=== PATIENT | male | born 1940 | race Caucasian/White ===

== ENCOUNTER 2017-05-27 20:47 | Observation (INO) ==
--- NOTE | 2017-05-27 20:58 | Emergency Department Note ---
Disposition Clinical Impression: Hypotension Qualifiers: Hypotension type: unspecified hypotension type Qualified Code(s): I95.9 - Hypotension, unspecified Medication adverse effect Qualifiers: Encounter type: initial encounter Qualified Code(s): T88.7XXA - Unspecified adverse effect of drug or medicament, initial encounter Disposition: Admitted As Inpatient Condition: Good Referrals: Oscar Khalil [Primary Care Provider] - Forms: ED Satisfaction Letter, Work/School Release Time of Disposition: 23:35 General Adult HPI - General Chief complaint: ED General Medical Stated complaint: low blood pressure Time Seen by Provider: 05/27/17 20:57 Source: patient Mode of arrival: ambulatory Limitations: no limitations Nursing Notes Reviewed: Yes Vital Signs Reviewed: Yes - History of Present Illness HPI Narrative: Patient is a 76-year-old male with past history of hypertension, hyperlipidemia , CAD, A. fib, previous CVA. He presents today due to concern for low blood pressure. He says that he was just started back on Cozaar 2 days ago. He he was taken off this medication in the past due to low blood pressure while on the medication. He says that today, he was walking at home and began to feel lightheaded, had blurred vision, felt generally fatigued. He took his blood pressure and it was systolic 60s. EMS was called, they state that blood pressure was 70 on arrival. He was immediately started on 1 L normal saline bolus. By the time he arrived to the ER, blood pressure was systolic of 114. The patient denies any other chest pain, shortness breath, nausea, vomiting, fevers, diarrhea, abdominal pain, dysuria, hematuria. He says that he currently feels generally fatigued. He also notes that he has chronic weakness in his left upper and left lower extremity from previous CVA and is adamant that this is not new, his is present and she confirms this. Pain Scale: 0 - Related Data Previous Rx's Medication Instructions Recorded cephALEXin [Keflex] 500 mg PO QID #40 capsule 02/13/17 Allergies Allergy/AdvReac Type Severity Reaction Status Date / Time No Known Allergies Allergy Verified 02/13/17 18:43 All systems ED: reviewed and negative except as stated. Constitutional: Denies: fever Cardiovascular: Denies: chest pain, palpitations Respiratory: Denies: cough, dyspnea Gastrointestinal: Denies: abdominal pain, nausea, vomiting, diarrhea Genitourinary: Denies: urgency, dysuria, frequency Integumentary: Denies: rash Neurological: Reports: weakness (Generalized). Denies: headache, numbness, paresthesias Endocrine: Reports: fatigue Past Medical History - Past Medical History Attestation: Yes The following information was validated with the patient. Source: patient Medical history: Reports: atrial fibrillation, coronary artery disease, GERD, hyperlipidemia, hypertension, myocardial infarction Psychiatric history: Reports: no psych history - Social History Smoking Status: Never smoker Smokeless Tobacco Status: No Alcohol use: Reports: none Drug use: Reports: none Physical Exam - General Limitations: no limitations General appearance: alert, in no apparent distress - Head Head exam: atraumatic, normocephalic, normal inspection - Eye Eye exam: Present: normal appearance, PERRL, EOMI - ENT ENT exam: normal exam, normal oropharynx, mucous membranes moist - Neck Neck exam: Present: normal inspection, full ROM, trachea midline - Chest Chest inspection: Present: normal inspection, symmetric chest wall rise - Respiratory Respiratory exam: Present: normal lung sounds bilaterally - Cardiovascular Cardiovascular exam: Present: regular rate, normal rhythm, normal heart sounds - Abdominal Exam Abdominal exam: Present: soft, Non-Tender. Absent: tenderness, distention, guarding, rebound, rigidity - Extremities Exam Extremities exam: Present: normal inspection, full ROM. Absent: tenderness, pedal edema - Neurological Exam Neurological exam: Present: alert, oriented X3, other (Generalized weakness of all extremities, worse in the left upper and left lower extremity which the patient states is chronic.) - Psychiatric Psychiatric exam: Present: normal affect, normal mood - Skin Skin exam: Present: warm, dry, intact, normal color Course Course Narrative: Currently concern for hypotension secondary to new medication started 2 days ago. Due to generalized fatigue and complaints of blurred vision earlier, will also obtain head CT scan, basic blood work, chest x-ray, EKG, troponin. We will give the patient another 1 L bolus. Patient will likely need to be admitted overnight for observation and continuing blood pressure monitoring. 23:19 workup shows no major lab abnormality. Troponin negative. EKG shows sinus bradycardia with no acute ST changes. We will recommend repeating chest x -ray with hospitalist due to low lung volumes. There was concern for rounded opacity in the right inferior medial lung base, however, patient has no productive cough, no fevers, no elevated white blood cell count. I do not feel that this is pneumonia at this time. Recommend repeat imaging once admitted. Head CT was negative for any acute intracranial abnormality. I believe the patient's blurred vision, lightheadedness, generalized fatigue was due to his hypotension secondary to new antihypertensive medication started within the past few days. His blood pressure has now stabilized in the 120s after 2 L normal saline bolus. We will start the patient on maintenance IV fluid at 125 mL per hour. We will admit to the hospitalist for observation overnight due to hypotension Chest X-Ray 05/27/17 21:21 IMPRESSION: Rounded opacity in the right inferior medial lung base. This is indeterminate given the low volumes and may represent a confluence of hilar shadows, however focal airspace disease in this location would be difficult to exclude completely. Upright two view chest would be more helpful in this regard. D/ / Uli Vargas / Uli Vargas Interpreting Provider: Uli Vargas Head CT 05/27/17 21:53 IMPRESSION: Chronic ischemic changes as above. No acute intracranial abnormality. D/ / Uli Hutchinson MD / Uli Hutchinson MD Interpreting Provider: Uli Hutchinson MD Vital Signs Temperature 98 F 05/27/17 20:52 Pulse Rate 50 05/27/17 20:52 Respiratory Rate 18 05/27/17 20:52 Blood Pressure 114/70 05/27/17 20:52 O2 Sat by Pulse Oximetry 98 05/27/17 20:52 Temperature 98 F 05/27/17 20:52 Pulse Rate 52 05/27/17 22:30 Respiratory Rate 18 05/27/17 22:30 Blood Pressure 136/74 05/27/17 22:30 O2 Sat by Pulse Oximetry 96 05/27/17 22:30 Oxygen Delivery Oxygen Delivery Room Air Medical Decision Making - MDM Narrative Medical decision making narrative: Currently concern for hypotension secondary to new medication started 2 days ago. Due to generalized fatigue and complaints of blurred vision earlier, will also obtain head CT scan, basic blood work, chest x-ray, EKG, troponin. We will give the patient another 1 L bolus. Patient will likely need to be admitted overnight for observation and continuing blood pressure monitoring. 23:19 workup shows no major lab abnormality. Troponin negative. EKG shows sinus bradycardia with no acute ST changes. We will recommend repeating chest x -ray with hospitalist due to low lung volumes. There was concern for rounded opacity in the right inferior medial lung base, however, patient has no productive cough, no fevers, no elevated white blood cell count. I do not feel that this is pneumonia at this time. Recommend repeat imaging once admitted. Head CT was negative for any acute intracranial abnormality. I believe the patient's blurred vision, lightheadedness, generalized fatigue was due to his hypotension secondary to new antihypertensive medication started within the past few days. His blood pressure has now stabilized in the 120s after 2 L normal saline bolus. We will start the patient on maintenance IV fluid at 125 mL per hour. We will admit to the hospitalist for observation overnight due to hypotension - Medical Records Medical records reviewed: Yes I reviewed the patient's medical records. - Lab Data Lab results reviewed: Yes I reviewed the patient's lab results. Result diagrams: 05/27/17 21:52 05/27/17 21:52 Lab Results 05/27/17 05/27/17 05/27/17 Range/Units 21:52 21:52 21:52 WBC 10.3 (4.3-11.1) K/mcL RBC 4.47 (4.19-5.50) M/mcL Hgb 11.7 L (12.9-16.9) g/dL Hct 38.0 (37.5-50.1) % MCV 85.0 (83.0-100.0) fL MCH 26.2 L (28.0-33.3) pg MCHC 30.8 L (31.6-35.5) g/dL RDW 16.0 H (11.5-14.5) % Plt Count 289 (140-400) K/mcL MPV 10.9 (9.4-12.4) fL Immature Gran % 0.4 (0-4) % Seg Neutrophils % 66.9 % Lymphocytes % 16.3 % Monocytes % 10.5 % Eosinophils % 5.3 % Basophils % 0.6 % Neutrophils # 6.9 (1.6-8.9) K/mcL Lymphocytes # 1.7 (0.6-4.6) K/mcL Monocytes # 1.1 (0.0-1.3) K/mcL Eosinophils # 0.5 (0.0-0.6) K/mcL Basophils # 0.1 (0.0-0.2) K/mcL PT 16.6 H (9.4-12.1) Seconds INR 1.5 APTT 33.6 (26.0-36.0) Seconds Sodium 135 L (136-145) mEq/L Potassium 4.3 (3.5-5.1) mEq/L Chloride 104 (98-107) mEq/L Carbon Dioxide 25 (23-29) mEq/L BUN 32 H (8-23) mg/dL Creatinine 1.01 (0.70-1.30) mg/dL Est GFR ( Amer) > 60 (> 60) Est GFR (Non-Af Amer) > 60 (> 60) BUN/Creatinine Ratio 32 H (6-26) Glucose 112 H (70-105) mg/dL Calculated Osmolality 288 (280-300) Calcium 8.5 L (8.6-10.3) mg/dL Troponin I < 0.03 (< 0.04) ng/mL - Radiology Data Radiology results reviewed: Yes I reviewed the patient's radiology results. Chest X-Ray 05/27/17 21:21 IMPRESSION: Rounded opacity in the right inferior medial lung base. This is indeterminate given the low volumes and may represent a confluence of hilar shadows, however focal airspace disease in this location would be difficult to exclude completely. Upright two view chest would be more helpful in this regard. D/ / Uli Vargas / Uli Vargas Interpreting Provider: Uli Vargas Head CT 05/27/17 21:53 IMPRESSION: Chronic ischemic changes as above. No acute intracranial abnormality. D/ / Uli Hutchinson MD / Uli Hutchinson MD Interpreting Provider: Uli Hutchinson MD - EKG Data EKG #1 EKG attestation: Yes I reviewed and interpreted this EKG. EKG results narrative: 05/27/2017 at 21:37. Sinus bradycardia. Rate 48. NC 173. QRS 94. QTC 443. Mild left axis deviation. No acute ST elevation or depression. S.B.A.R. - S.B.A.R. Situation: Demographics, MOA Background: Presenting Complaint, Relevant PMH, Meds, & Allergies Assessment: Vital Signs, Course and respsone to treatment, Exam Concerns, Patient/Family Expectation, Pertinant Lab Results, Outstanding Labs Recommendation: Barrier(s) to disposition, Recommendation based on pending studies, treatments, or consults S.B.A.R. Report Given to: Dr. Sky Attestation Statement - Attestation Attestation: I examined this patient and my medical decision-making was reviewed with the Resident Physician. I agree with the documented findings, disposition and treatment plan as described except to the extent set forth below. Findings consistent with reported hypotension at home. There is possible opacity on x- ray. We will obtain 2 view x-ray. Patient has no productive sputum or fever. Clinically I do not suspect pneumonia but we will obtain confirmatory imaging. Patient be admitted for evaluation of blood pressure and monitoring.
[2017-05-27] MEDS ORDERED: 0.9 % Sodium Chloride 1,000 ML IVC ONE (21:22)
[2017-05-27 22:29] LABS: Basophils # 0.1 K/mcL (0.0-0.2); Basophils % 0.6 %; Eosinophils # 0.5 K/mcL (0.0-0.6); Eosinophils % 5.3 %; Hemoglobin 11.7 g/dL (12.9-16.9); Immature Granulocytes % 0.4 % (0-4); Lymphocytes # 1.7 K/mcL (0.6-4.6); Lymphocytes % 16.3 %; Mean Corpuscular HGB Conc 30.8 g/dL (31.6-35.5); Mean Corpuscular Hemoglobin 26.2 pg (28.0-33.3); Mean Platelet Volume 10.9 fL (9.4-12.4); Monocytes # 1.1 K/mcL (0.0-1.3); Monocytes % 10.5 %; Neutrophils # 6.9 K/mcL (1.6-8.9); Platelet Count 289 K/mcL (140-400); Red Blood Count 4.47 M/mcL (4.19-5.50); Segmented Neutrophils % 66.9 %
[2017-05-27 22:35] LABS: INR 1.5; Prothrombin Time 16.6 Seconds (9.4-12.1)
[2017-05-27 22:38] LABS: Activated Partial Thrombo Time 33.6 Seconds (26.0-36.0)
[2017-05-27 23:07] LABS: BUN/Creatinine Ratio 32 (6-26); Blood Urea Nitrogen 32 mg/dL (8-23); Calcium 8.5 mg/dL (8.6-10.3); Carbon Dioxide 25 mEq/L (23-29); Chloride 104 mEq/L (98-107); Glucose 112 mg/dL (70-105); Osmolality,Calculated 288 (280-300); Potassium 4.3 mEq/L (3.5-5.1); Sodium 135 mEq/L (136-145); Troponin I < 0.03 ng/mL (< 0.04); eGFR For African Americans > 60 (> 60); eGFR For Non-African Americans > 60 (> 60)
[2017-05-27] MEDS ORDERED: 0.9 % Sodium Chloride 1,000 ML IVC SCH (23:45)
[2017-05-28] MEDS ORDERED: Naloxone 0.4 MG/ML INJ IVP PRN (03:33)
[2017-05-28] MEDS ORDERED: Maalox Oral Soln 30 mL PO PRN (03:35)
[2017-05-28] MEDS ORDERED: Artificial Tears SOLN 15 ML BOTTLE BOTH EYES PRN (03:35)
[2017-05-28] MEDS ORDERED: Acetaminophen 325 MG TABLET PO PRN (03:35)
[2017-05-28] MEDS: 0.9 % Sodium Chloride 1,000 ML IVC SCH ×2 (04:59→18:45)
--- NOTE | 2017-05-28 05:57 | Internal Med History&Physical ---
Date of Encounter: 05/28/17 Time of Encounter: 02:00 Internal Medicine - H&P: HPI Chief complaint: Hypotension Admitted From: Home Plans for Post Hospital Care: Home History of present illness: Mr. Rae is a 76 year old male presented to ER for low BP at home. Past medical history is significant for hypertension, CAD S/P stent, paroxysmal A. 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 Patient said he blood pressure at home and was found BP is low at 60/20 at 7 PM yesterday. Patient denies dizziness, nausea, fever, or chest pain. Patient denies black stool or diarrhea. Patient has mild blurred vision. Patient recently started new medication cozaar 25 mg qd and takes only for 2 days (yesterday and the day before yesterday). In emergency room, he was given bolus normal saline for 2000 mL and his BP getting back to normal level. Patient was admitted for further observation. Past Med Surg Social Fam HX - Past Medical History Medical history: atrial fibrillation, coronary artery disease, DVT, GERD, hyperlipidemia, hypertension, myocardial infarction, venous stasis Psychiatric history: no psych history - Social History Smoking Status: Never smoker Smokeless Tobacco Status: No Alcohol use: none Drug use: none - Family History Mother Living Status: Age at : 87 Cause of : mi Hx Family Cardiac Disorders: Yes Hx Family Cancer: Yes (lymphosarcoma) Father Living Status: Age at : 73 Cause of : mi Internal Medicine - H&P: Meds Acetaminophen [Tylenol] 650 mg PO Q4H PRN 05/28/17 [History] Apixaban [Eliquis] 5 mg PO BID 05/28/17 [History] Aspirin [Lo-Dose Aspirin EC] 81 mg PO DAILY 05/28/17 [History] Atorvastatin [Lipitor] 20 mg PO HS 05/28/17 [History] Baclofen [Lioresal] 15 mg PO BID 05/28/17 [History] Cholecalciferol (D-3) [Vitamin D] 1 tab PO BID 05/28/17 [History] Dextran 70/Hypromellose [Artificial Tears] 2 drop BOTH EYES BID PRN 05/28/17 [ History] Escitalopram [Lexapro] 10 mg PO DAILY 05/28/17 [History] Gabapentin [Neurontin] 300 mg PO HS 05/28/17 [History] Isosorbide MONOnitrate (24 HR) [Imdur] 30 mg PO DAILY 05/28/17 [History] Mag Hydrox/Al Hydrox/Simeth [Maalox] 30 ml PO BID PRN 05/28/17 [History] [place]-3S/Dha/Epa/Fish Oil [Fish Oil 1,000 mg Softgel] 1 each PO BID 05/28/17 [ History] Pantoprazole Sodium [Protonix] 40 mg PO DAILY 05/28/17 [History] Polyethylene Glycol 3350 [MiraLAX] 1 pack PO DAILY PRN 05/28/17 [History] Sennosides [Senna] 1 tab PO BID 05/28/17 [History] Sotalol [Betapace] 40 mg PO BID 05/28/17 [History] Tamsulosin [Flomax] 1 cap PO HS 05/28/17 [History] traZODone [TraZODone] 50 mg PO HS 05/28/17 [History] 3 Allergy/AdvReac Type Severity Reaction Status Date / Time No Known Allergies Allergy Verified 02/13/17 18:43 All Systems PM: A 10-system review of systems was performed and is negative for pertinent findings except as documented above in the HPI. - Constitutional Vitals: Temp Pulse Resp BP Pulse Ox 98.0 F 59 16 143/80 97 05/28/17 04:58 05/28/17 04:58 05/28/17 04:58 05/28/17 04:58 05/28/17 04:58 General appearance: Present: A&O X 3, no acute distress, answers questions appropriately - Head Head exam: Present: atraumatic, normocephalic - Eye Eye exam: Present: PERRL, conjuntiva pink, sclera anicteric Pupils: Present: PERRL - Neck Neck exam general surgery: Present: supple, trachea midline. Absent: lymphadenopathy - Respiratory Respiratory exam: Present: CTAB. Absent: accessory muscle use, rales, rhonchi, wheezes - Cardiovascular Cardiovascular exam: Present: bradycardia, RRR, +S1, +S2. Absent: diastolic murmur, gallop, rubs, systolic murmur - GI/Abdominal GI/Abdominal exam: Present: normal bowel sounds, soft, no peritoneal signs. Absent: distended, tenderness - Extremities Exam Extremities exam: Present: warm, radial pulses palpable and symmetrical. Absent : calf tenderness, cyanotic, pedal edema - Neurological Exam Neurological exam: Present: CN II-XII intact, motor sensory deficit (Left arm and bilateral leg weakness, which is chronic), oriented X3, no focal deficits. Absent: pronater drift, facial droop, speech deficit - Skin Skin exam: Present: dry, intact Internal Med - H&P Results - Labs CBC & Chem 7: 05/27/17 21:52 05/27/17 21:52 - Assessment and plan (1) CAD (coronary artery disease) Current Visit: Yes Status: Acute Assessment and plan: No chest pain at this point. Continue home medication and continue monitoring Qualifiers: Coronary Disease-Associated Artery/Lesion type: [place] artery [place] vs. transplanted heart: [place] heart Associated angina: without angina Qualified Code(s): I25.10 - Atherosclerotic heart disease of [place] coronary artery without angina pectoris (2) A-fib Current Visit: Yes Status: Acute Assessment and plan: Sinus rhythm now. On Betapace. On Eliquis for anticoagulation Qualifiers: Atrial fibrillation type: paroxysmal Qualified Code(s): I48.0 - Paroxysmal atrial fibrillation (3) DVT prophylaxis Current Visit: Yes Status: Acute Assessment and plan: Patient is on Eliquis (4) Hypotension Current Visit: Yes Status: Acute Assessment and plan: Most likely due to new hypertension medication Cozaar. Will hold the Cozaar, closely monitor BP. No signs of bleeding or sepsis. Qualifiers: Hypotension type: hypotension due to drug Qualified Code(s): I95.2 - Hypotension due to drugs - Time Spent With Patient Total time spent is greater than 50% in coordination of care (as documented) at patient's floor/unit and/or counseling patient: 40 minutes Greater than 35 minutes
[2017-05-28] MEDS: Isosorbide MONOnitrate (24 HR) 30 MG TAB.ER.24H PO SCH (08:57)
[2017-05-28] MEDS: Baclofen 10 MG TABLET PO SCH ×2 (08:57→20:50)
[2017-05-28] MEDS: Cholecalciferol (D-3) 1,000 UNIT TABLET PO SCH (08:57)
[2017-05-28] MEDS: Sennosides 8.6 MG TABLET PO SCH ×2 (08:57→20:49)
[2017-05-28] MEDS: Apixaban 5 MG TABLET PO SCH ×2 (08:57→20:48)
[2017-05-28] MEDS: Aspirin Enteric Coated 81 MG Tablet PO SCH (08:57)
[2017-05-28] MEDS: (Fish Oil 1,000 Mg Softgel) PO SCH ×2 (10:47→20:50)
--- NOTE | 2017-05-28 15:58 | Event Note ---
Date of Encounter: 05/28/17 Time of Encounter: 15:54 Seen and examined at bedside. Patient is new to me, information obtained from chart review, patient report and daughter at bedside. Patient says he feels better on today's exam. Daughter reports he was started on Cozaar 2 days ago and BP was 60s/20s at home. Patient reports being on amlodipine in the past and says it was stopped due to a reaction which he thinks is nausea. No anaphylaxis or angioedema or SOB. He is agreeable to try resuming amlodipine while inpatient. 1. Hypertension: Per history. Was recently started on losartan outpatient with drop in BP to 60/20. BP improved with holding BP medication and IV fluids. BP now elevated. Stop IV fluids, start low-dose amlodipine. Monitor BP and titrate PRN 2. Atrial flutter: Per history. Telemetry with NSR/sinus bradycardia. Continue home sotalol, Eliquis. Monitor in telemetry, may need to decrease sotalol if heart rate too low. 3. Paralysis: Patient reports history multiple back surgeries with subsequent paralysis. Requires 24 hour care. Lives with his daughter who is his primary caregiver. Supportive care. 4. DVT prophylaxis: Eliquis
[2017-05-28] MEDS ORDERED: amLODIPine 5 MG TABLET PO SCH (16:00)
--- NOTE | 2017-05-28 16:58 | Electrocardiograph Report ---
[place] [id number] Test Date: 2017-05-27 Pat Name: John Rae Department: 102 Room: [facility] Gender: M Requirements Engineer: Skip : 1940 Requested By: Gerber Martinez Order Number: [id number] Reading MD: Awilda Olsen Measurements Intervals [place] Rate: 48 P: 87 [place]: 173 QRS: -14 QRSD: 94 T: 69 QT: 476 QTc: 443 Interpretive Statements SINUS BRADYCARDIA INFERIOR MYOCARDIAL INFARCTION [40+ ms Q WAVE AND/OR ST/T ABNORMALITY IN II/aVF], PROBABLY OLD Electronically Signed On 05-28-2017 16:56:59 EDT by Awilda Olsen
[2017-05-28] MEDS ORDERED: Gabapentin 300 MG CAPSULE PO SCH (21:00)
[2017-05-28] MEDS ORDERED: traZODone 50 MG TABLET PO SCH (21:00)
[2017-05-29 02:06] LABS: Hematocrit 36.2 % (37.5-50.1); Hemoglobin 11.3 g/dL (12.9-16.9); Mean Corpuscular HGB Conc 31.2 g/dL (31.6-35.5); Mean Corpuscular Volume 83.4 fL (83.0-100.0); Mean Platelet Volume 10.6 fL (9.4-12.4); Platelet Count 267 K/mcL (140-400); Red Blood Count 4.34 M/mcL (4.19-5.50); Red Cell Distribution Width 16.2 % (11.5-14.5)
[2017-05-29 02:26] LABS: BUN/Creatinine Ratio 28 (6-26); Blood Urea Nitrogen 15 mg/dL (8-23); Calcium 8.7 mg/dL (8.6-10.3); Carbon Dioxide 27 mEq/L (23-29); Chloride 106 mEq/L (98-107); Glucose 105 mg/dL (70-105); Osmolality,Calculated 289 (280-300); Potassium 4.4 mEq/L (3.5-5.1); Sodium 139 mEq/L (136-145); eGFR For African Americans > 60 (> 60); eGFR For Non-African Americans > 60 (> 60)
--- NOTE | 2017-05-29 08:31 | Internal Med Progress Note ---
<Kev Voss - Last Filed: 05/29/17 11:36> Date of Encounter: 05/29/17 Time of Encounter: 08:29 - Assessment and plan (1) Hypotension Current Visit: Yes Status: Acute Assessment and plan: Hypotension resolved. Blood pressure 146/79 Most likely due to new hypertension medication Cozaar. - Cozaar held on admission - No signs of bleeding or sepsis. - Troponin less than 0.03 Plan: - Hold antihypertensive medications - Likely discharge follow-up with patient's commercial service technician. Qualifiers: Hypotension type: hypotension due to drug Qualified Code(s): I95.2 - Hypotension due to drugs (2) CAD (coronary artery disease) Current Visit: Yes Status: Acute Assessment and plan: No chest pain at this point. -Patient states history of 10 stents last one 3-4 years ago Continue home medication and continue monitoring Qualifiers: Coronary Disease-Associated Artery/Lesion type: [place] artery [place] vs. transplanted heart: [place] heart Associated angina: without angina Qualified Code(s): I25.10 - Atherosclerotic heart disease of [place] coronary artery without angina pectoris (3) A-fib Current Visit: Yes Status: Acute Assessment and plan: History of atrial fibrillation on rhythm control sotalol - Currently normal sinus rhythm with appropriate rate - Continue sotalol 40 mg by mouth twice a day - Continue Eliquis for anticoagulation - Continue cardiac monitoring while inpatient. Qualifiers: Atrial fibrillation type: paroxysmal Qualified Code(s): I48.0 - Paroxysmal atrial fibrillation (4) DVT prophylaxis Current Visit: Yes Status: Acute Assessment and plan: Patient is on Eliquis - Time Spent With Patient Total time spent is greater than 50% in coordination of care (as documented) at patient's floor/unit and/or counseling patient: - Subjective Interval history: Mr. Rae 76-year-old male seen and evaluated the patient bedside this morning. He is alert awake interactive no acute distress. We discussed his previous surgeries and blood pressure medications prior to this admission. He denies any acute problems, dizziness, syncope or near syncopal episodes. Denies any nausea, vomiting, diarrhea constipation or abdominal discomfort. Denies any chest pain, shortness of breath or palpitations. He requested if we are thinking of starting any blood pressure medications she wants to talk to his commercial service technician at [facility] Dr. Chávez . He has no other concerns or complaints this morning. - Constitutional Vitals: Temp Pulse Resp BP Pulse Ox 98.3 F 64 16 146/79 95 05/29/17 06:51 05/29/17 06:51 05/29/17 06:51 05/29/17 06:51 05/29/17 06:51 General appearance: Present: A&O X 3, no acute distress, answers questions appropriately Exam: General: Patient alert, awake, oriented 3, interactive, in no acute distress HEENT: Normocephalic, atraumatic, pupils equal reactive to light, oral mucosa moist, neck supple trachea midline no palpable lymphadenopathy, no thyromegaly. Chest: Symmetric bilateral correlating with respiratory effort, effort nonlabored. Cardiac: Regular rate and rhythm, positive S1 and S2. no bruits appreciated bilateral carotids, Radial pulses 2+ bilateral Respiratory: Clear to auscultation all lung [place] Abdomen: Soft, nontender, positive bowel sounds, no palpable masses appreciated on examination Extremities: Symmetric bilateral, bilateral lower extremities without erythema or edema, diffusely poor musculature and bilateral lower extremities. Left upper extremity has poor musculature 0 out of 5 muscle strength mild dependent edema and hand. Right upper extremity has 4 out of 5 muscle strength limited range of motion ability at the glenohumeral joint. Internal Medicine: Result - Labs CBC & Chem 7: 05/29/17 01:22 05/29/17 01:22 Labs: Short CBC 05/29/17 Range/Units 01:22 WBC 7.8 (4.3-11.1) K/mcL Hgb 11.3 L (12.9-16.9) g/dL Hct 36.2 L (37.5-50.1) % Plt Count 267 (140-400) K/mcL BMP 05/29/17 01:22 Sodium 139 Potassium 4.4 Chloride 106 Carbon Dioxide 27 BUN 15 Creatinine 0.54 L Glucose 105 Calcium 8.7 - ABG Interpretation ABG results: PT/INR, D-dimer PT 16.6 Seconds (9.4-12.1) H 05/27/17 21:52 Consult Discharge Plan - Plan Additional Instructions: 1. Follow-up with your primary care provider in the next 3-5 days 2. Take all prescriptions as prescribed, any concerns or questions contact her primary care provider. 3. Return to the emergency department if: Recurrence of lightheadedness, low blood pressure or any other concerning medical symptoms or signs. - Do not take Cozaar until follow-up with cardiology. Referrals: Oscar Khalil [Primary Care Provider] - 06/08/17 7:40 am Prescriptions: Baclofen [Lioresal] 5 mg PO TID #90 tablet <JoannmichealManjit kohler - Last Filed: 05/29/17 16:38> Date of Encounter: 05/29/17 - Assessment and plan (1) Hypotension Current Visit: Yes Status: Acute Qualifiers: Hypotension type: hypotension due to drug Qualified Code(s): I95.2 - Hypotension due to drugs (2) CAD (coronary artery disease) Current Visit: Yes Status: Acute Qualifiers: Coronary Disease-Associated Artery/Lesion type: [place] artery [place] vs. transplanted heart: [place] heart Associated angina: without angina Qualified Code(s): I25.10 - Atherosclerotic heart disease of [place] coronary artery without angina pectoris (3) A-fib Current Visit: Yes Status: Acute Qualifiers: Atrial fibrillation type: paroxysmal Qualified Code(s): I48.0 - Paroxysmal atrial fibrillation (4) DVT prophylaxis Current Visit: Yes Status: Acute - Time Spent With Patient Total time spent is greater than 50% in coordination of care (as documented) at patient's floor/unit and/or counseling patient: - Constitutional Vitals: Temp Pulse Resp BP Pulse Ox 98 F 58 16 121/63 96 05/29/17 10:51 05/29/17 10:51 05/29/17 10:51 05/29/17 10:51 05/29/17 10:51 Internal Medicine: Result - Labs CBC & Chem 7: 05/29/17 01:22 05/29/17 01:22 Labs: Short CBC 05/29/17 Range/Units 01:22 WBC 7.8 (4.3-11.1) K/mcL Hgb 11.3 L (12.9-16.9) g/dL Hct 36.2 L (37.5-50.1) % Plt Count 267 (140-400) K/mcL BMP 05/29/17 01:22 Sodium 139 Potassium 4.4 Chloride 106 Carbon Dioxide 27 BUN 15 Creatinine 0.54 L Glucose 105 Calcium 8.7 Urine 05/29/17 Range/Units 14:45 Urine Color Yellow (Yellow) Urine Clarity Clear (Clear) Urine pH 6.0 (5.0-8.0) pH Units Ur Specific [place] 1.015 (1.010-1.025) Urine Protein Negative (Neg-Trace) mg/dL Urine Glucose (UA) Normal (Normal) mg/dL - ABG Interpretation ABG results: PT/INR, D-dimer PT 16.6 Seconds (9.4-12.1) H 05/27/17 21:52 - Attending Attestation Hypertension likely caused by Cozaar Check urinalysis, treat possible UTI Time spent 40 minutes I examined this patient and my medical decision-making was reviewed with the Resident Physician. I agree with the documented findings, disposition and treatment plan as described except to the extent set forth below.
[2017-05-29] MEDS: Isosorbide MONOnitrate (24 HR) 30 MG TAB.ER.24H PO SCH (08:56)
[2017-05-29] MEDS: Apixaban 5 MG TABLET PO SCH (08:57)
[2017-05-29] MEDS: Aspirin Enteric Coated 81 MG Tablet PO SCH (08:57)
[2017-05-29] MEDS: Baclofen 10 MG TABLET PO SCH (08:57)
[2017-05-29] MEDS: Cholecalciferol (D-3) 1,000 UNIT TABLET PO SCH (08:57)
[2017-05-29] MEDS: Sennosides 8.6 MG TABLET PO SCH (08:57)
[2017-05-29] MEDS: (Fish Oil 1,000 Mg Softgel) PO SCH (09:00)
--- NOTE | 2017-05-29 15:12 | Discharge Summary ---
<BipinKev Negron - Last Filed: 05/29/17 15:07> Orders not resulted at time of discharge: Pending orders 05/29/17 14:45 UA w. reflex culture [Urinalysis Reflex Cult & Micro] [URIN] Stat Date of Encounter: 05/29/17 Time of Encounter: 15:07 - Discharge Diagnosis (1) Hypotension Priority: Primary Status: Acute Qualifiers: Hypotension type: hypotension due to drug Qualified Code(s): I95.2 - Hypotension due to drugs (2) CAD (coronary artery disease) Priority: Secondary Status: Acute Qualifiers: Coronary Disease-Associated Artery/Lesion type: [place] artery [place] vs. transplanted heart: [place] heart Associated angina: without angina Qualified Code(s): I25.10 - Atherosclerotic heart disease of [place] coronary artery without angina pectoris (3) A-fib Priority: Secondary Status: Acute Qualifiers: Atrial fibrillation type: paroxysmal Qualified Code(s): I48.0 - Paroxysmal atrial fibrillation (4) DVT prophylaxis Priority: Secondary Status: Acute Hospital course: Mr. 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 He was recently started on Cozaar 2 days prior to this admission. Upon evaluation emergency department was found to have bradycardia, hypotension and given IV fluids, EKG performed demonstrated bradycardia normal sinus rhythm. After IV fluid administration blood pressure improved is admitted to general medical floor placed on cardiac monitoring. Antihypertensive medications were held and patient's blood pressure improved and remained appropriate overnight. Heart rate improved to mid 50s to mid 60s. Patient remained asymptomatic throughout the day on 05/29/2017 deemed stable for discharge. He is advised to not take his Cozaar as this may be contributing to his hypotensive event. Recommend follow-up with his PCP and clinic director. Review his medication list his baclofen was reduced from 50 mg by mouth twice a day 25 mg 3 times a day. Prescription was sent to his pharmacy. - Time Spent with Patient Total time spent providing and/or coordinating discharge services: - Discharge Medications Prescriptions: Baclofen [Lioresal] 5 mg PO TID #90 tablet Home Medications: Acetaminophen [Tylenol] 650 mg PO Q4H PRN 05/28/17 [History] Apixaban [Eliquis] 5 mg PO BID 05/28/17 [History] Aspirin [Lo-Dose Aspirin EC] 81 mg PO DAILY 05/28/17 [History] Atorvastatin [Lipitor] 40 mg PO HS 05/28/17 [History] Dextran 70/Hypromellose [Artificial Tears] 2 drop BOTH EYES BID PRN 05/28/17 [ History] Gabapentin [Neurontin] 300 mg PO HS 05/28/17 [History] Ipratropium [place] 1 spr NS DAILY 05/28/17 [History] Mag Hydrox/Al Hydrox/Simeth [Maalox] 30 ml PO BID PRN 05/28/17 [History] Trail-3S/Dha/Epa/Fish Oil [Fish Oil 1,000 mg Softgel] 1 each PO BID 05/28/17 [ History] Pantoprazole Sodium [Protonix] 40 mg PO DAILY 05/28/17 [History] Polyethylene Glycol 3350 [MiraLAX] 1 pack PO DAILY PRN 05/28/17 [History] Sennosides [Senna] 1 tab PO BID 05/28/17 [History] Sotalol [Betapace] 40 mg PO BID 05/28/17 [History] Tamsulosin [Flomax] 1 cap PO HS 05/28/17 [History] traZODone [TraZODone] 50 mg PO HS 05/28/17 [History] Baclofen [Lioresal] 5 mg PO TID #90 tablet 05/29/17 [Rx] Allergies/Adverse Reactions: 3 Allergy/AdvReac Type Severity Reaction Status Date / Time No Known Allergies Allergy Verified 05/28/17 09:47 Date of admission: 05/28/17 00:36 Primary care physician: Oscar Khalil Consults: 05/28/17 01:49 Consult to Nutrition [CONS] Routine Comment: Consulting Provider: NUTRITION Reason for Dietary Consult: MST Score Consult to Pastoral Services [CONS] Routine Comment: Discharging clinician: Kev Voss Anticipated date of discharge: 05/29/17 - Constitutional Vitals: Temp Pulse Resp BP Pulse Ox 98 F 58 16 121/63 96 05/29/17 10:51 05/29/17 10:51 05/29/17 10:51 05/29/17 10:51 05/29/17 10:51 General appearance: Present: A&O X 3, no acute distress, answers questions appropriately Exam: General: Patient alert, awake, oriented 3, interactive, in no acute distress HEENT: Normocephalic, atraumatic, pupils equal reactive to light, oral mucosa moist, neck supple trachea midline no palpable lymphadenopathy, no thyromegaly. Chest: Symmetric bilateral correlating with respiratory effort, effort nonlabored. Cardiac: Regular rate and rhythm, positive S1 and S2. no bruits appreciated bilateral carotids, Radial pulses 2+ bilateral Respiratory: Clear to auscultation all lung [place] Abdomen: Soft, nontender, positive bowel sounds, no palpable masses appreciated on examination Extremities: Symmetric bilateral, bilateral lower extremities without erythema or edema, diffusely poor musculature and bilateral lower extremities. Left upper extremity has poor musculature 0 out of 5 muscle strength mild dependent edema and hand. Right upper extremity has 4 out of 5 muscle strength limited range of motion ability at the glenohumeral joint. - Patient Status Disposition: Home, Self-Care Condition: Good Functional capacity at discharge: wheelchair bound Overall status at discharge: patient is progressing back to baseline - Discharge Instructions Follow Up With: Oscar Khalil [Primary Care Provider] - 06/08/17 7:40 am Additional Instructions: 1. Follow-up with your primary care provider in the next 3-5 days 2. Take all prescriptions as prescribed, any concerns or questions contact her primary care provider. 3. Return to the emergency department if: Recurrence of lightheadedness, low blood pressure or any other concerning medical symptoms or signs. - Do not take Cozaar until follow-up with cardiology. - Diet and Activity Activity: increase activity as tolerated Diet: advance to your usual diet <Manjit Noel - Last Filed: 05/29/17 16:38> Date of Encounter: 05/29/17 - Discharge Diagnosis (1) Hypotension Status: Acute Qualifiers: Hypotension type: hypotension due to drug Qualified Code(s): I95.2 - Hypotension due to drugs (2) CAD (coronary artery disease) Status: Acute Qualifiers: Coronary Disease-Associated Artery/Lesion type: [place] artery [place] vs. transplanted heart: [place] heart Associated angina: without angina Qualified Code(s): I25.10 - Atherosclerotic heart disease of [place] coronary artery without angina pectoris (3) A-fib Status: Acute Qualifiers: Atrial fibrillation type: paroxysmal Qualified Code(s): I48.0 - Paroxysmal atrial fibrillation (4) DVT prophylaxis Status: Acute Hospital course: Mr. Rae is a 76 year old male - Time Spent with Patient Total time spent providing and/or coordinating discharge services: Date of admission: 05/28/17 00:36 Primary care physician: Oscar Khalil Consults: 05/28/17 01:49 Consult to Nutrition [CONS] Routine Comment: Consulting Provider: NUTRITION Reason for Dietary Consult: MST Score Consult to Pastoral Services [CONS] Routine Comment: - Constitutional Vitals: Temp Pulse Resp BP Pulse Ox 98 F 58 16 121/63 96 05/29/17 10:51 05/29/17 10:51 05/29/17 10:51 05/29/17 10:51 05/29/17 10:51 - Attending Attestation Hypertension likely caused by Cozaar UA was negative Time spent 40 minutes I examined this patient and my medical decision-making was reviewed with the Resident Physician. I agree with the documented findings, disposition and treatment plan as described except to the extent set forth below.
--- NOTE | 2017-05-29 15:18 | Physician Discharge Referral ---
<Kev Voss - Last Filed: 05/29/17 15:18> Home Health/Hosp Referral Info Transfer to: Home Health Provider in Charge Post Discharge: PCP - Diagnosis (1) Hypotension Priority: Primary Status: Acute (2) CAD (coronary artery disease) Priority: Secondary Status: Acute (3) A-fib Priority: Secondary Status: Acute (4) DVT prophylaxis Priority: Secondary Status: Acute - Respiratory Orders Smoking Cessation: Smoking cessation has been advised. For more information, call the [place] Tobacco Quit Line at 8-549-CYBK-NOW. - Diet/Nutrition Diet/Nutrition Orders: Regular - Activity Activity Orders: Ambulate (with physical therapy. Use wheel chair.) - Services Needed Following services are medically necessary services: Nursing, Home Health Aide, Physical Therapy, Occupational Therapy, Med Social Work - Transfer Medications Prescriptions: Baclofen [Lioresal] 5 mg PO TID #90 tablet Home Medications: Acetaminophen [Tylenol] 650 mg PO Q4H PRN 05/28/17 [History] Apixaban [Eliquis] 5 mg PO BID 05/28/17 [History] Aspirin [Lo-Dose Aspirin EC] 81 mg PO DAILY 05/28/17 [History] Atorvastatin [Lipitor] 40 mg PO HS 05/28/17 [History] Dextran 70/Hypromellose [Artificial Tears] 2 drop BOTH EYES BID PRN 05/28/17 [ History] Gabapentin [Neurontin] 300 mg PO HS 05/28/17 [History] Ipratropium [place] 1 spr NS DAILY 05/28/17 [History] Mag Hydrox/Al Hydrox/Simeth [Maalox] 30 ml PO BID PRN 05/28/17 [History] [place]-3S/Dha/Epa/Fish Oil [Fish Oil 1,000 mg Softgel] 1 each PO BID 05/28/17 [ History] Pantoprazole Sodium [Protonix] 40 mg PO DAILY 05/28/17 [History] Polyethylene Glycol 3350 [MiraLAX] 1 pack PO DAILY PRN 05/28/17 [History] Sennosides [Senna] 1 tab PO BID 05/28/17 [History] Sotalol [Betapace] 40 mg PO BID 05/28/17 [History] Tamsulosin [Flomax] 1 cap PO HS 05/28/17 [History] traZODone [TraZODone] 50 mg PO HS 05/28/17 [History] Baclofen [Lioresal] 5 mg PO TID #90 tablet 05/29/17 [Rx] Allergies/Adverse Reactions: 3 Allergy/AdvReac Type Severity Reaction Status Date / Time No Known Allergies Allergy Verified 05/28/17 09:47 Certification: Further, I certify that my clinical findings support that this patient is homebound (i.e. absences from home require considerable and taxing effort and are for medical reasons or nondenominational services or infrequently or short duration when for other reasons) because: Homebound Reason: Patient requires assistance of a person or device to safely leave home, Leaving home requires considerable and taxing effort due to condition Attestation: My signature below is to certify that this patient is under my care and that I, or nurse practitioner, or a physician's clinical laboratory assistant working with me, has a face-to -face encounter with this patient. <Manjit Noel - Last Filed: 05/29/17 16:39> - Diagnosis (1) Hypotension Status: Acute (2) CAD (coronary artery disease) Status: Acute (3) A-fib Status: Acute (4) DVT prophylaxis Status: Acute - Respiratory Orders Smoking Cessation: Smoking cessation has been advised. For more information, call the [place] Tobacco Quit Line at 5-983-TJMGNOW. Certification: Further, I certify that my clinical findings support that this patient is homebound (i.e. absences from home require considerable and taxing effort and are for medical reasons or nondenominational services or infrequently or short duration when for other reasons) because: Attestation: My signature below is to certify that this patient is under my care and that I, or nurse practitioner, or a physician's clinical laboratory assistant working with me, has a face-to -face encounter with this patient.
[2017-05-29 15:48] LABS: Bilirubin,Urine Negative (Negative); Blood,Urine Negative (Negative); Clarity,Urine Clear (Clear); Color,Urine Yellow (Yellow); Glucose,Urine (UA) Normal (Normal); Ketones,Urine Negative (Negative); Leukocyte Esterase,Urine Negative (Negative); Nitrite,Urine Negative (Negative); Protein,Urine Negative (Neg-Trace); Specific Gravity,Urine 1.015 (1.010-1.025); Urobilinogen,Urine Normal (Normal)
[2017-05-29 17:03] VITALS: BP 153/81
== END 2017-05-29 18:08 | disposition home or self-care (01) ==
LOC: EMEROO 20:47 → 3NENU 20:47 → SUATTDRO 05-28 00:36 → 3NENU 05-28 00:51
PROVIDERS: ADMIT Internal Medicine; ATTEND Internal Medicine